=== PATIENT | male | born 1970 | race Caucasian/White ===

== ENCOUNTER 2024-05-25 15:12 | Emergency (ER) | payer MEDICAID ==
[~2024-05-25] VITALS: Ht 167.6 cm; Wt 59.0 kg
[~2024-05-25 15:12] MED LIST: INSULIN
[2024-05-25 15:27] VITALS: O2SAT 99
[2024-05-25] MEDS ORDERED: AMOX1TAB16 MT (20:14)
[2024-05-25] MEDS ORDERED: BO1 TP (20:14)
[2024-05-25 20:36] VITALS: BP 138/91; PULSE 64; RESP 16; TEMP 36.83628; O2SAT 99
[2024-05-25] MEDS: TETANUS, DIPHTHERIA, PERTUSSIS VAC/PF 0.5ML (>10YR OLD) IM ONE (20:41)
== END 2024-05-25 20:44 | disposition home or self-care (01) ==
LOC: ER 15:12
DX: S60.571A Other superficial bite of hand of right hand, initial encounter (principal); E11.9 Type 2 diabetes mellitus without complications; I10 Essential (primary) hypertension; Z98.890 Other specified postprocedural states; W54.0XXA Bitten by dog, initial encounter; Y93.89 Activity, other specified; Y92.89 Other specified places as the place of occurrence of the external cause; Y99.8 Other external cause status
CPT/HCPCS: 90715; 90471; 99283; Z7610 ×2